=== PATIENT | female | born 1995 | race Caucasian/White ===

== ENCOUNTER → 2017-02-08 | Outpatient (CLI) | payer OTHER ==
--- NOTE | 2017-02-11 11:27 | CPEEG ---
[f rep st] ELECTROENCEPHALOGRAM A 4-HOUR VIDEO EEG. DATE OF STUDY: 02/08/2017 INTERPRETATION: This 4-hour video EEG recording is normal. There were no potentially epileptogenic abnormalities present in the awake or sleep recordings. During the video EEG monitoring session, t he patient did not have any clinical events. REPORT: This 4-hour video EEG contains 10 Hz alpha activity to the posterior head regions. There w as no abnormal activation at rest, during photic stimulation or hyperventilation. With hyperventila tion, the patient had a normal hyperventilation build-up response composed of moderate to high ampli tude, anterior dominant theta and delta frequency activity. The patient became drowsy and fell into sustained non-REM sleep during the study. There was no abnormal activation during drowsiness, slee p, or during times of arousal. There were no clinical events recorded during the video EEG monitori ng session. /[id number]/[id number]
== END ==
LOC: FCPNEURO 08:48
PROVIDERS: ATTEND Psychiatry & Neurology Neurology
DX: G40.109 Localization-related (focal) (partial) symptomatic epilepsy and epileptic syndromes with simple partial seizures, not intractable, without status epilepticus (principal)